=== PATIENT | male | born 1950 | race Caucasian/White ===

== ENCOUNTER 2024-04-01 14:33 | Emergency (ER) | payer BC ==
[~2024-04-01] VITALS: Ht 185.4 cm; Wt 90.7 kg
[2024-04-01 15:12] VITALS: BP 133/80; PULSE 85; RESP 16; TEMP 98.1; O2SAT 98
[2024-04-01] MEDS: LIDOCAINE HCL 1% 20ML VIAL INFIL ONE (16:56)
[2024-04-01] MEDS ORDERED: OXYC-105 MT (19:00)
[2024-04-01] MEDS ORDERED: IBUP-2029 MT (19:01)
== END 2024-04-01 19:27 | disposition home or self-care (01) ==
LOC: ER 14:33
DX: S52.602A Unspecified fracture of lower end of left ulna, initial encounter for closed fracture (principal); S52.592A Other fractures of lower end of left radius, initial encounter for closed fracture; W18.39XA Other fall on same level, initial encounter; Y93.89 Activity, other specified; Y92.89 Other specified places as the place of occurrence of the external cause; Y99.8 Other external cause status
CPT/HCPCS: 25605; 73090; 73110; 73120; 99152; 99285; 73100; J3490